=== PATIENT | male | born 1955 | race Caucasian/White ===

== ENCOUNTER → 2018-04-20 15:11 | Outpatient (CLI) | payer OTHER | END | disposition home or self-care (01) | LOC: D.CT 15:11 | DX: R93.3 Abnormal findings on diagnostic imaging of other parts of digestive tract (principal); R10.9 Unspecified abdominal pain; R19.7 Diarrhea, unspecified ==

== ENCOUNTER 2019-01-05 07:06 | Day surgery (SDC) | payer OTHER ==
[~2019-01-05] VITALS: Ht 188 cm; Wt 81.2 kg
[~2019-01-05 07:06] MED LIST: BETAPACE 80 MG80 MG PO; CYCLOBENZAPRINE10 MG PO; ELIQUIS5 MG PO; FLUTICASONE PRO16 GM NASAL; FUROSEMIDE40 MG PO; K-DUR20 MEQ PO; ZOCOR40 MG PO; ZYRTEC10 MG PO
[2019-01-05 07:41] LABS: HEMATOCRIT 49.6 % (42.0-54.0); HEMOGLOBIN 17.1 g/dL (13.5-17.5); MCH 32.3 pg (26.0-34.0); MCHC 34.5 g/dL (31.0-37.0); MCV 93.8 fL (80.0-100.0); MEAN PLATELET VOLUME 9.5 fL (7.4-10.4); RBC 5.29 10x6/uL (4.20-6.10); RDW 14.3 % (11.5-14.5); WBC 9.6 10x3/uL (4.8-10.8)
[2019-01-05 07:50] LABS: APTT 30.2 SECONDS (22.8-39.4); INR 0.99 (0.85-1.17); PROTIME 12.6 SECONDS (11.6-15.0)
[2019-01-05 08:42] VITALS: BP 122/76; Ht 188 cm; Wt 81.2 kg
[2019-01-05] MEDS ORDERED: ULTRAM50 MG PO (10:51)
--- NOTE | 2019-01-05 13:16 | NUR ---
1241 PT REQUESTED PAIN MEDICATION AFTER BEING OUT OF BED TO ATTEMPT TO VOID. TRAMADOL GIVEN ORDERED. 1305 PT STATES PAIN LEVEL IS GOING DOWN SLIGHTLY AFTER RECEIVING PAIN MEDICATION.
--- NOTE | 2019-01-05 13:51 | NUR ---
1329 PT AMBULATED TO BATHROOM PER SELF WITHOUT DIFFICULTY. WAS ABLE TO VOID THIS TIME. STATES IT WAS THE AMOUNT OF A "SMALL CUP"
--- NOTE | 2019-01-05 13:53 | NUR ---
1335 IV DC'D. CATHETER TIP INTACT. PRESSURE HELD UNTIL BLEEDING STOPPED. BANDAID APPLIED.
--- NOTE | 2019-01-23 10:07 | OP ---
PATIENT NAME: ROMERO MENDEZ MEDICAL RECORD: [id number] :59 LOCATION:D.OPS ADMISSION DATE: SURGEON: ARNALDO AREVALO MD DATE OF OPERATION: 01/05/2019 PREOPERATIVE DIAGNOSES: 1. Anal fissure. 2. Chronic diarrhea. 3. Hypercholesterolemia. 4. Gastroesophageal reflux disease. 5. Atrial fibrillation. 6. Chronic anticoagulation therapy. 7. Chronic obstructive pulmonary disease. 8. Tobacco dependence syndrome. POSTOPERATIVE DIAGNOSES: 1. Anal fissure. 2. Chronic diarrhea. 3. Hypercholesterolemia. 4. Gastroesophageal reflux disease. 5. Atrial fibrillation. 6. Chronic anticoagulation therapy. 7. Chronic obstructive pulmonary disease. 8. Tobacco dependence syndrome. 9. Internal hemorrhoid. PROCEDURE: 1. Anal exam under anesthesia. 2. Lateral internal sphincterotomy on the left side. 3. Right posterior internal hemorrhoid banding. SURGEON: Arnaldo Arevalo MD REPORT OF PROCEDURE: The patient was placed in lithotomy position and the perianal region was prepped and draped in sterile fashion. A small [place] anoscope was inserted and there was noted to be a very constricted anal orifice. We were eventually able to push through and inspect the anal orifice and distal rectum. The patient had a small posterior anal fissure. He also had a tear to the anterior aspect of the anus. This was associated with a small sentinel pile. This sentinel pile and a portion of this tissue was excised and sent off for permanent specimen. An inspection in a 360-degree fashion of the anus revealed a pedunculated internal hemorrhoid on the right posterior side. This was treated with hemorrhoidal banding. We then performed a closed left lateral internal sphincterotomy using an 11-blade. The muscle fibers were released down to the dentate line. At this point, we had much easier visualization of the anal region and a lot of the tension was released. We then irrigated out the wound thoroughly with normal saline and pressure was applied to the area to try to control any bleeding. We noted there were multiple tears on the scan of the anus just from manipulation and probing and after pressure was applied most of these areas discontinued any bleeding. A piece of Gelfoam dipped in [place] was then inserted at the anus and a dressing was applied. COMPLICATIONS: None. OPERATIVE REPORT [id number] ROMERO MENDEZ CONDITION: Stable. ANESTHESIA: General endotracheal. BLOOD LOSS: 30 mL. TRANSINT:[id number] Voice Confirmation ID: [id number] DOCUMENT ID: [id number] ARNALDO AREVALO MD at 1007 CC: ALAN TOBIAS MD [id number] DICTATION DATE: 01/05/19 1056 WINDOW DRESSER: 01/05/19 1108 DEP SDC 01/05/19 [place] [id number] [place] [id number]
== END 2019-01-05 13:47 | disposition home or self-care (01) ==
LOC: D.OPS 07:06 → D.PAN 09:15 → D.OPS 09:15
PROVIDERS: Anesthesiology; ATTEND Surgery
DX: K60.2 Anal fissure, unspecified (principal); K52.9 Noninfective gastroenteritis and colitis, unspecified; E78.00 Pure hypercholesterolemia, unspecified; I48.91 Unspecified atrial fibrillation; Z79.01 Long term (current) use of anticoagulants; F17.200 Nicotine dependence, unspecified, uncomplicated; K64.8 Other hemorrhoids